=== PATIENT | female | born 1950 | race Caucasian/White ===

== ENCOUNTER 2022-12-22 07:00 | Outpatient (CLI) | payer MEDICARE, OTHER ==
--- NOTE | 2022-12-22 14:29 | XRAY Report ---
PROCEDURE: Hand 3 View LT INDICATIONS: LEFT HAND AND WRIST PAIN TECHNIQUE: 3 views of the hand(s) acquired. COMPARISON: None. FINDINGS: Bones: No fractures or dislocations. No suspicious bony lesions. Second DIP joint space narrowing w ith marginal erosions. Fifth and third DIP joint space narrowing with marginal osteophytes. Soft tissues: No suspicious soft tissue calcifications or masses. 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 No evidence of fracture Reviewed by: Chad Frances MD on 12/22/2022 1:28 PM [facility] Approved by: Chad Frances MD on 12/22/2022 1:28 PM [facility]DT Station ID: [id number]
--- NOTE | 2022-12-22 14:56 | XRAY Report ---
PROCEDURE: Wrist 3 View LT INDICATIONS: LEFT HAND AND WRIST PAIN TECHNIQUE: 3 views of the wrist were acquired. COMPARISON: None. FINDINGS: Bones: No fractures or dislocations. No suspicious bony lesions. Soft tissues: No suspicious soft tissue calcifications or masses. IMPRESSION: No acute bony abnormality. Reviewed by: Chad Frances MD on 12/22/2022 1:55 PM [facility]DT Approved by: Chad Frances MD on 12/22/2022 1:55 PM [facility]DT Station ID: [id number]
== END 2022-12-22 23:59 | disposition home or self-care (01) ==
LOC: DI.S 07:00
PROVIDERS: ATTEND Registered Nurse
DX: M19.042 Primary osteoarthritis, left hand (principal); M85.842 Other specified disorders of bone density and structure, left hand; M25.532 Pain in left wrist